=== PATIENT | male | born 1980 | race Caucasian/White ===

== ENCOUNTER 2019-08-08 04:53 | Emergency (ER) | payer SELFPAY ==
[~2019-08-08] VITALS: Ht 182.9 cm; Wt 68.0 kg
[2019-08-08 04:53] VITALS: BP 140/70
[2019-08-08] MEDS ORDERED: LANTUS SOL100 UNIT/1 SUBQ (04:57)
[2019-08-08] MEDS ORDERED: CIPRO500 MG/51 PO (04:57)
--- NOTE | 2019-08-08 04:58 | NUR ---
ED Nurse Note: brought in by ambulance for C/O high blood sugar. Pt is yelling and screaming, cursing at the [facility] and staff. pt is alert x4. ambulatory.
--- NOTE | 2019-08-08 05:01 | NUR ---
ED Nurse Note: pt refused to get blood sample and is refusing care. Pt attempted to punch staff at ED. [employer] was called.
--- NOTE | 2019-08-08 05:02 | NUR ---
ED Nurse Note: pt stated he rather just leave and all he wants is a cup of iced water. iced water was given to pt. pt walked out of ED with steady gait and took all his belongings.
--- NOTE | 2019-08-08 05:03 | Emergency Room Report ---
History of Present Illness General Chief Complaint: Hyperglycemia Source: Patient Present Illness HPI 60-year-old male presents with elevated glucose, patient was eating at OP, he was belligerent, [employer] was called, patient states any to go to the hospital I have an elevated glucose, patient was found to have an undetectable glucose reading, patient was being belligerent calling everyone names, demanding he get ice chips, patient is uncooperative with interview, stating get me a blanket. Patient also yelling profanities at nursing staff as well as the doctor. Allergies: Coded Allergies: No Known Allergies (Unverified , 08/08/19) Patient History Past Medical History: see triage record Reviewed Nursing Documentation: PMH: Agreed; PSxH: Agreed Nursing Documentation-PMH Past Medical History: No History, Except For Hx Diabetes: Yes - dka Review of Systems All Other Systems: negative except mentioned in HPI Physical Exam Vital Signs Date Time Temp Pulse Resp B/P (MAP) Pulse Ox O2 Delivery O2 Flow Rate FiO2 08/08/19 04:53 98.2 80 18 140/70 (93) 98 Room Air Sp02 EP Interpretation: reviewed, normal General Appearance: well appearing, no apparent distress, alert Head: normocephalic, atraumatic Eyes: bilateral eye PERRL, bilateral eye EOMI ENT: uvula midline, moist mucus membranes Neck: supple, thyroid normal, supple/symm/no masses Respiratory: lungs clear, no respiratory distress, no retraction, no accessory muscle use Cardiovascular #1: normal peripheral pulses, regular rate, rhythm, no edema, no gallop, no murmur Gastrointestinal: non tender, soft, no guarding, no rebound Musculoskeletal: normal inspection Neurologic: alert, oriented x3 Psychiatric: anxious, other - combative rude Skin: no rash, warm/dry Medical Decision Making Diagnostic Impression: Primary Impression: Encounter for generalized patient complaints Additional Impression: Hyperglycemia ER Course 39-year-old male presents with elevated glucose, patient was being combative at OP, patient attempted to punch 1 of our techs, patient is demanding blankets, a cup of water Patient was counseled that he cannot be rude to staff, patient then started calling staff as well as nurses profanities Patient had to be removed due to safety concerns Last Vital Signs Date Time Temp Pulse Resp B/P (MAP) Pulse Ox O2 Delivery O2 Flow Rate FiO2 08/08/19 04:53 98.2 80 18 140/70 (93) 98 Room Air Disposition: HOME, SELF-CARE Condition: Stable Referrals: [facility] [place] Patient Instructions: Hyperglycemia, [id number] Additional Instructions: The patient was provided with discharge instructions, notified to follow-up with a primary care doctor and or specialist in the next 24-48 hours, and to return to the ED if they have worsening of their symptoms. Please note that this report is being documented using [employer] technology. This can lead to erroneous entry secondary to incorrect interpretation by the dictating instrument. Guy Squires MD Aug 08, 2019 05:03
== END 2019-08-08 05:10 | disposition left against medical advice (07) ==
LOC: EDBD 04:53 → EMR 05:09
DX: Z53.8 Procedure and treatment not carried out for other reasons (principal); E11.65 Type 2 diabetes mellitus with hyperglycemia